=== PATIENT | female | born 1990 | race Caucasian/White ===

== ENCOUNTER 2018-03-04 16:15 | Inpatient (IN) | payer BC ==
[~2018-03-04] VITALS: Ht 165.1 cm; Wt 71.8 kg
[2018-03-04] VITALS (24 sets, daily range): BP systolic 112–153; BP diastolic 57–90; PULSE 63–136; TEMP 97.3–98.2
[2018-03-04] MEDS ORDERED: PRENATAL MVI PO (16:39)
[2018-03-04 17:34] LABS: BASO % 0.3 % (0.0-2.0); EOS # 0.1 (0.0-0.7); EOS % 0.5 % (0-4.0); GRAN # 6.9 (1.4-6.5); GRAN % 71.8 % (42.2-75.2); HEMOGLOBIN 12.1 g/dl (12.5-16.0); LYMPH # 1.9 (1.2-3.4); LYMPH % 20.1 % (20.0-51.0); MEAN CELL VOLUME 91 fl (80.0-100.0); MEAN CORPUSCULAR HEMOGLOBIN 31 pg (27.0-31.0); MEAN CORPUSCULAR HGB CONC 34 g/dl (33.0-37.0); MEAN PLATELET VOLUME 10.5 fl (7.4-10.4); MONO # 0.7 (0.1-0.6); PLATELET COUNT 278 K/mm3 (130-400); RED BLOOD COUNT 3.86 M/mm3 (4.10-5.30)
[2018-03-04 17:38] LABS: HEMATOCRIT 35.2 % (37.0-47.0)
[2018-03-05 03:00] VITALS: BP 118/65; PULSE 69; TEMP 97.6
[2018-03-05 07:00] VITALS: BP 112/66; PULSE 78; TEMP 98.1
[2018-03-05] MEDS ORDERED: PERCOCET 325 MG1 TA2 PO (07:39)
[2018-03-05] MEDS ORDERED: MOTRIN 600600 MG/TAB PO (07:39)
[2018-03-05 16:09] VITALS: BP 128/81; PULSE 77; TEMP 98.7
[2018-03-05 22:00] VITALS: BP 128/81; PULSE 79; TEMP 98.7
[2018-03-06 03:00] VITALS: BP 120/78; PULSE 76; TEMP 98.2
[2018-03-06 07:51] VITALS: BP 112/66; PULSE 72; TEMP 98.1
== END 2018-03-06 11:57 | disposition home or self-care (01) | DRG 775 ==
LOC: LDRO 16:15 → LDR 16:30 → OB 23:30
PROVIDERS: Obstetrics & Gynecology
PROC: 10E0XZZ Delivery of Products of Conception, External Approach (ICD-10-PCS; principal; 2018-03-04)
PROC: 3E033VJ Introduction of Other Hormone into Peripheral Vein, Percutaneous Approach (ICD-10-PCS; 2018-03-04)
DX: O42.02 Full-term premature rupture of membranes, onset of labor within 24 hours of rupture (principal); O36.5930 Maternal care for other known or suspected poor fetal growth, third trimester, not applicable or unspecified; O69.81X0 Labor and delivery complicated by cord around neck, without compression, not applicable or unspecified; Z3A.37 37 weeks gestation of pregnancy; Z37.0 Single live birth
CPT/HCPCS: J2590; J7120

== ENCOUNTER → 2018-03-22 | Outpatient (CLI) | payer BC ==
[~2018-03-22] MED LIST: MOTRIN 600600 MG/TAB PO; PERCOCET 325 MG1 TA2 PO; PRENATAL MVI PO
== END ==
LOC: OLC 10:52
DX: Z39.1 Encounter for care and examination of lactating mother (principal); Z71.89 Other specified counseling

== ENCOUNTER → 2020-06-11 | Outpatient (CLI) | payer BC | LOC: ZCOL.LAB 14:27 | DX: J02.9 Acute pharyngitis, unspecified (principal); Z20.828 Contact with and (suspected) exposure to other viral communicable diseases ==

== ENCOUNTER 2023-03-14 10:02 | Emergency (ER) | payer BC ==
[~2023-03-14] VITALS: Ht 167.6 cm; Wt 56.8 kg
[2023-03-14] MEDS ORDERED: NORCO 325 MG-51 TAB PO (10:58)
[2023-03-14 12:02] VITALS: BP 133/88; PULSE 56; TEMP 97.9
== END 2023-03-14 12:03 | disposition home or self-care (01) ==
LOC: COL.ER 10:02
DX: M25.561 Pain in right knee (principal); Z87.828 Personal history of other (healed) physical injury and trauma

== ENCOUNTER 2023-07-05 08:06 | Outpatient (RCR) | payer BC ==
[~2023-07-05 08:06] MED LIST changes: +NORCO 325 MG-51 TAB PO
== END 2023-07-22 | disposition home or self-care (01) ==
LOC: PT.GENESIS
DX: M25.361 Other instability, right knee (principal); Z98.890 Other specified postprocedural states

== ENCOUNTER 2023-08-24 13:02 | Outpatient (RCR) | payer BC | END 2023-08-24 15:15 | LOC: PT.GENESIS 13:02 | DX: M25.361 Other instability, right knee (principal) ==

== ENCOUNTER 2023-11-17 08:45 | Outpatient (RCR) | payer BC | END 2023-11-21 | disposition home or self-care (01) | LOC: PT.GENESIS | DX: Z47.89 Encounter for other orthopedic aftercare (principal); M25.361 Other instability, right knee; M25.561 Pain in right knee ==

== ENCOUNTER 2023-12-13 09:00 | Outpatient (RCR) | payer BC | END 2023-12-22 | disposition home or self-care (01) | LOC: PT.GENESIS | DX: M25.561 Pain in right knee (principal); M25.361 Other instability, right knee ==

== ENCOUNTER 2024-01-10 09:03 | Outpatient (RCR) | payer BC | END 2024-01-20 | disposition home or self-care (01) | LOC: PT.GENESIS | DX: Z47.89 Encounter for other orthopedic aftercare (principal); M25.361 Other instability, right knee; M25.561 Pain in right knee ==